=== PATIENT | male | born 1965 | race Hispanic/Latino ===

== ENCOUNTER 2019-01-17 13:14 | Emergency (ER) | payer OTHER ==
[~2019-01-17] VITALS: Ht 172.7 cm; Wt 140.6 kg
[2019-01-17] MEDS ORDERED: DEXAMETHASONE SOD PHOSPHATE 10MG/ML 1ML VIAL ONE (13:33)
[2019-01-17] MEDS ORDERED: BENZONATATE 100 MG CAPSULE PO ONE (13:34)
[2019-01-17] MEDS ORDERED: IPRATROPIUM/ALBUTEROL SULFATE 3 ML SOLUTION IH ONE (13:42)
== END 2019-01-17 14:17 | disposition home or self-care (01) ==
LOC: EDH 13:14
DX: J20.9 Acute bronchitis, unspecified (principal); H72.92 Unspecified perforation of tympanic membrane, left ear; E11.9 Type 2 diabetes mellitus without complications; Z86.73 Personal history of transient ischemic attack (TIA), and cerebral infarction without residual deficits; Z79.899 Other long term (current) drug therapy
CPT/HCPCS: 94640; 96372; 99283; J1100

== ENCOUNTER 2022-04-04 23:33 | Emergency (ER) | payer OTHER ==
[2022-04-05] MEDS ORDERED: MORPHINE 2 MG SYG IVP ONE
[2022-04-05 00:21] LABS: CREATININE 1.2 mg/dL (0.5-1.5); POTASSIUM 3.4 mmol/L (3.5-5.1)
[2022-04-05 00:22] LABS: INR 1.05 (0.85-1.15); PROTHROMBIN TIME 11.4 SEC (9.6-11.6)
[2022-04-05 00:23] LABS: PARTIAL THROMBOPLASTIN TIME 24.2 SEC (26.3-35.5)
[2022-04-05 00:27] LABS: APPEARANCE,URINE CLEAR (CLEAR); BILIRUBIN,URINE NEGATIVE (NEGATIVE); COLOR,URINE YELLOW (YELLOW); GLUCOSE, URINE (UA) NEGATIVE (NEGATIVE); KETONES,URINE NEGATIVE (NEGATIVE); LEUKOCYTE ESTERASE ,URINE NEGATIVE (NEGATIVE); NITRATE,URINE NEGATIVE (NEGATIVE); OCCULT BLOOD,URINE TRACE-LYSED (NEGATIVE); PH,URINE 5.5 (5.0-8.0); PROTEIN,URINE NEGATIVE (NEGATIVE); UROBILINOGEN,URINE 0.2 mg/dL (0.2-1.0)
[2022-04-05 00:27] LABS: ALBUMIN 3.3 g/dL (3.5-5.0); TOTAL PROTEIN, SERUM 7.4 g/dL (6.0-8.3)
[2022-04-05 00:37] LABS: BASOPHILS % (AUTO) 0.3 % (0.0-5.0); HEMATOCRIT 42.2 % (42-54); LYMPHOCYTES % (AUTO) 11.5 % (21.0-51.0); MEAN CORPUSCULAR HEMOGLOBIN 29.2 pg (27.0-33.0); MEAN CORPUSCULAR HGB CONC 33.2 g/dL (32.0-36.0); MEAN CORPUSCULAR VOLUME 87.9 fL (79-99); MONOCYTES % (AUTO) 6.4 % (3.0-13.0); NEUTROPHILS % (AUTO) 77.4 % (40.0-77.0); PLATELET COUNT (AUTO) 163 K/uL (130-400); RED CELL DISTRIBUTION WIDTH 13.8 % (11.0-15.5); WHITE BLOOD COUNT (AUTO) 10.4 K/uL (4.8-10.8)
[2022-04-05 00:42] LABS: AMORPHOUS SEDIMENT,UR Few /LPF (None Seen); BACTERIA,URINE Few /HPF (None Seen); RBC,URINE 0-1 /HPF (0-1); SQUAMOUS EPITHELIAL CELL,UR 0-2 /HPF (0-2); WBC,URINE 0-1 /HPF (0-1)
[2022-04-05] MEDS ORDERED: ACETAMINOPHEN 500 MG TABLET ONE (01:26)
[2022-04-05] MEDS ORDERED: IBUP-2070 PO (02:23)
[2022-04-05] MEDS ORDERED: ACET-66 PO (02:23)
[2022-04-05 02:40] VITALS: BP 124/76
== END 2022-04-05 03:28 | disposition home or self-care (01) ==
LOC: EDH 23:33
DX: S39.011A Strain of muscle, fascia and tendon of abdomen, initial encounter (principal); S70.01XA Contusion of right hip, initial encounter; E78.00 Pure hypercholesterolemia, unspecified; Z86.73 Personal history of transient ischemic attack (TIA), and cerebral infarction without residual deficits; Z74.09 Other reduced mobility; W01.0XXA Fall on same level from slipping, tripping and stumbling without subsequent striking against object, initial encounter; Y93.89 Activity, other specified; Y92.89 Other specified places as the place of occurrence of the external cause; Y99.8 Other external cause status
CPT/HCPCS: 36415; 73502; 80053; 81001; 85025; 85610; 85730; 96374

== ENCOUNTER 2024-06-17 09:38 | Day surgery (SDC) | payer OTHER ==
[~2024-06-17] VITALS: Ht 160 cm; Wt 133.8 kg
[2024-06-17] VITALS (13 sets, daily range): BP systolic 112–130; BP diastolic 58–79; PULSE 56–72; RESP 14–20; TEMP 97.2–98.6
[~2024-06-17 09:38] MED LIST: ACET-66 PO; IBUP-2070 PO
[2024-06-17] MEDS ORDERED: APIX5TAB PO (10:49)
[2024-06-17] MEDS ORDERED: proPOFol 10 MG/ML 20ML VIAL IV ONE ×2 (11:38)
[2024-06-17] MEDS: 0.9%NACL 1000ML 1,000 ML IV ONE (12:00)
== END 2024-06-17 15:40 | disposition home or self-care (01) ==
LOC: DAH 09:38
PROVIDERS: ATTEND Internal Medicine Gastroenterology
DX: R19.5 Other fecal abnormalities (principal); K29.50 Unspecified chronic gastritis without bleeding; R12 Heartburn; R14.2 Eructation; I10 Essential (primary) hypertension; E66.01 Morbid (severe) obesity due to excess calories; Z86.73 Personal history of transient ischemic attack (TIA), and cerebral infarction without residual deficits; E78.00 Pure hypercholesterolemia, unspecified; Z98.890 Other specified postprocedural states; Z79.899 Other long term (current) drug therapy
CPT/HCPCS: 43239; 45378; J7030 ×2; J2704 ×2; A4620; A4215; A4223; A7002; A4222; A4221; A4663; A4606; G0121; J3490